=== PATIENT | female | born 1970 | race Hispanic/Latino ===

== ENCOUNTER 2018-08-20 09:25 | Outpatient (CLI) | payer BC ==
[2018-08-20] MEDS ORDERED: ISOVUE-370 76%-LOCM 1 ML ONE (10:04)
--- NOTE | 2018-08-20 11:20 | CT ---
CT OF ABDOMEN AND PELVIS PERFORMED WITH INTRAVENOUS CONTRAST ENHANCEMENT: History: Abdominal pain, diarrhea. Reflux. History of hernia surgery. FINDINGS: The lung bases are clear. The liver, spleen, pancreas, and gallbladder regions all appear unremarkable. Right and left adrenal glands and right and left kidneys are normal in appearance. There is no signif icant periaortic adenopathy. No significant mesenteric lymphadenopathy. CT OF PELVIS PERFORMED WITH INTRAVENOUS CONTRAST ENHANCEMENT: The appendix is normal. No evidence of adenopathy, mass, or free fluid. A 2.4 cm mass is seen along the left side of the fundus of the uterus compatible with a fibroid. Foll icles are seen involving the right adnexa and a bilobed cyst or two cysts adjacent to each other are seen within the left adnexa which have a maximum length of 5.1 cm in diameter, approximately 2.2 cm. IMPRESSION: 1. Uterine fibroid. 2. Left ovarian cyst. POS: [facility]
== END 2018-08-20 09:26 | disposition home or self-care (01) ==
LOC: BICCT 09:25
PROVIDERS: ATTEND Internal Medicine Gastroenterology
DX: R10.10 Upper abdominal pain, unspecified (principal); R19.7 Diarrhea, unspecified; K21.9 Gastro-esophageal reflux disease without esophagitis; N83.202 Unspecified ovarian cyst, left side; D25.9 Leiomyoma of uterus, unspecified
CPT/HCPCS: 74177

== ENCOUNTER 2019-04-15 09:50 | Outpatient (CLI) | payer BC ==
--- NOTE | 2019-04-15 11:44 | ULT ---
RIGHT UPPER QUADRANT ULTRASOUND: HISTORY: Right upper quadrant pain. FINDINGS: Real-time imaging of the right upper quadrant shows a normal-appearing gallbladder. The common duct is 2-3 mm. Visualized liver parenchyma shows no focal abnormalities. The technologist describes a n egative ultrasound Avilez's sign. The right kidney is normal in size but not obstructed. The pancreas is obscured. IMPRESSION: Unremarkable gallbladder ultrasound. POS: [facility]
== END 2019-04-15 09:51 | disposition home or self-care (01) ==
LOC: BICULT 09:50
PROVIDERS: ATTEND Internal Medicine Gastroenterology
DX: K21.9 Gastro-esophageal reflux disease without esophagitis (principal); R10.13 Epigastric pain; R47.02 Dysphasia; K59.00 Constipation, unspecified
CPT/HCPCS: 76705

== ENCOUNTER 2020-07-15 14:47 | Emergency (ER) | payer BC ==
[2020-07-15] MEDS ORDERED: Ondansetron PF 4 MG/2 ML Vial ONE (15:26)
[2020-07-15] MEDS ORDERED: Morphine 4 MG/ML VIAL ONE (15:26)
[2020-07-15 15:38] LABS: #Eosinphils 0.1 thou/uL (0.0-0.7); #Lymphocytes 1.3 thou/uL (1.20-3.40); #Monocytes 0.3 thou/uL (0.11-0.59); #Neutrophils 3.4 thou/uL (1.40-6.50); %Basophils 0.3 % (0.0-1.0); %Eosinophils 1.6 % (0.0-10.0); %Lymphocytes 25.9 % (21.0-51.0); %Neutrophils 66.1 % (42.0-75.0); Hemoglobin 12.1 g/dL (12.0-16.0); Mean Corpuscular HGB CONC 33.5 g/dL (32.0-36.0); Mean Corpuscular Hemoglobin 28.1 pg (27.0-31.0); Mean Corpuscular Volume 84.1 fL (78.0-98.0); Mean Platelet Volume 8.1 fL (7.4-10.4); Platelet Count 207 thou/uL (130-400); RBC Distribution Width 12.1 % (11.5-14.5); Red Blood Cell (RBC) Count 4.28 mill/uL (4.20-5.40); White Blood Cell (WBC) Count 5.2 thou/uL (4.8-10.8)
[2020-07-15 15:43] LABS: BHCG - Serum Negative (NEGATIVE); Pregs Control Background? CLEAR/WHITE (CLR/WHITE); Pregs Control Bar Appear? YES (CONTROL BAR)
[2020-07-15 15:57] LABS: ALT (SGPT) 25 U/L (8-55); AST (SGOT) 25 U/L (5-34); Albumin 4.1 g/dL (3.5-5.0); Alkaline Phosphatase 63 U/L (40-110); Anion Gap 12 mmol/L (10-20); BUN (Urea Nitrogen) 11 mg/dL (9.8-20.1); Bilirubin, Total 0.6 mg/dL (0.2-1.2); Calc. Creatinine Clearance 0 mL/min (70-130); Calcium 8.8 mg/dL (7.8-10.44); Carbon Dioxide 27 mmol/L (22-29); Chloride 105 mmol/L (98-107); Globulin 2.5 g/dL (2.4-3.5); Glucose 104 mg/dL (70-105); Potassium 3.9 mmol/L (3.5-5.1); Protein, Total 6.6 g/dL (6.0-8.3); Sodium 140 mmol/L (136-145)
[2020-07-15 16:08] LABS: Bilirubin Negative (Negative); Blood, Urine Negative (Negative); Clarity Clear (Clear); Glucose, Urine (Dipstick) Normal (Negative); Ketone, Urine Negative (Negative); Leukocyte 25 Leu/uL (Negative); Nitrite Negative (Negative); Protein, Urine (Dipstick) Negative (Neg-Trace); RBC/HPF 0-3 HPF (0-3); Specific Gravity, Urine 1.004 (1.002-1.036); Squamous Epithelial 0-3 HPF (0-3); Urobilinogen Normal mg/dL (Less than 2); WBC/HPF 0-3 HPF (0-3); pH, Urine 7.5 (5.0-9.0)
[2020-07-15 16:10] LABS: Bacteria/HPF 1+ HPF (None Seen)
--- NOTE | 2020-07-15 16:42 | CT ---
CT abdomen and pelvis noncontrast HISTORY: Left flank pain. COMPARISON: 08/20/2018. FINDINGS: Each renal collecting system, ureter, and urinary bladder are decompressed without stone ap parent. Dystrophic calcification near the GE junction is again demonstrated. Hemostasis clips lie immediately adjacent to the medial margin of the spleen and the gastric cardia. Lack of contrast limits evaluation of the soft tissues. Small amount of abdominal fat protrudes into a tiny umbilical hernia. At the expected location of the left ovary, which now lies anterior to the left uterine cornua, where it was posterior on the prior study, a complex cyst measuring up to 3.1 cm greatest diameter contains a fluid fluid level. No evidence of bowel obstruction or inflammation. Appendix unremarkable. No free air. IMPRESSION : No evidence of urinary tract obstruction or calcification. Complex 3.1 cm left ovarian cyst. Fluid fluid level likely represents blood content.
--- NOTE | 2020-07-15 18:27 | ULT ---
PELVIC SONOGRAM WITH TRANSABDOMINAL IMAGING WITH DUPLEX EVALUATION: 07/15/20 HISTORY: Pelvic pain. Left ovarian cyst. COMPARISON: CT abdomen 07/15/20. FINDINGS: Patient declined transvaginal imaging. Urinary bladder is incompletely distended. Uterus has a hetero geneous echotexture and measures up to 9.7 cm. Endometrium is 1.2 cm. Physiologic amount of free fluid within the cul-de-sac. Right ovary measures up to 2.9 cm with good color and spectral Doppler flow. The left ovary measures up to 4.0 cm. A bilobed complex hypoechoic/cystic mass measures up to 3.0 cm x 2.9 cm greatest diameters. Good color and spectral Doppler flow within the left ovary. IMPRESSION: 1. Complex left ovarian cyst, 2.9 cm. No evidence of torsion. 2. Thickened endometrium 1.2 cm. POS: [facility]
== END 2020-07-15 18:59 | disposition home or self-care (01) ==
LOC: ERS 14:47
DX: N83.202 Unspecified ovarian cyst, left side (principal); N39.0 Urinary tract infection, site not specified; K21.9 Gastro-esophageal reflux disease without esophagitis
CPT/HCPCS: 36415; 74176; 76856; 80053; 81003; 81015; 84703; 85025; 87086; 93976; 96374; 96375; J2270; J2405

== ENCOUNTER 2021-08-25 23:13 | Emergency (ER) | payer BC ==
[2021-08-25 23:37] LABS: Bilirubin Negative (Negative); Blood, Urine Negative (Negative); Clarity Clear (Clear); Glucose, Urine (Dipstick) Normal (Negative); Ketone, Urine Negative (Negative); Leukocyte Negative Leu/uL (Negative); Nitrite Negative (Negative); Protein, Urine (Dipstick) Negative (Neg-Trace); Specific Gravity, Urine 1.003 (1.002-1.036); Urobilinogen Normal mg/dL (Less than 2)
[2021-08-26 00:11] LABS: #Eosinphils 0.1 thou/uL (0.0-0.7); #Lymphocytes 1.7 thou/uL (1.20-3.40); #Monocytes 0.3 thou/uL (0.11-0.59); #Neutrophils 1.8 thou/uL (1.40-6.50); %Basophils 0.8 % (0.0-1.0); %Eosinophils 1.8 % (0.0-10.0); %Lymphocytes 42.8 % (21.0-51.0); %Monocytes 7.8 % (0.0-10.0); %Neutrophils 46.8 % (42.0-75.0); Mean Corpuscular HGB CONC 32.9 g/dL (32.0-36.0); Mean Corpuscular Hemoglobin 28.9 pg (27.0-31.0); Mean Corpuscular Volume 87.9 fL (78.0-98.0); Mean Platelet Volume 7.7 fL (7.4-10.4); Platelet Count 229 thou/uL (130-400); RBC Distribution Width 11.2 % (11.5-14.5); Red Blood Cell (RBC) Count 4.51 mill/uL (4.20-5.40); White Blood Cell (WBC) Count 3.9 thou/uL (4.8-10.8)
[2021-08-26 00:19] LABS: BHCG - Serum Negative (NEGATIVE); Pregs Control Background? CLEAR/WHITE (CLR/WHITE); Pregs Control Bar Appear? YES (CONTROL BAR)
[2021-08-26 00:25] LABS: ALT (SGPT) 21 U/L (8-55); AST (SGOT) 20 U/L (5-34); Albumin 4.4 g/dL (3.5-5.0); Alkaline Phosphatase 97 U/L (40-110); Anion Gap 14 mmol/L (10-20); BUN (Urea Nitrogen) 10 mg/dL (9.8-20.1); Bilirubin, Total 0.5 mg/dL (0.2-1.2); Calc. Creatinine Clearance 0 mL/min (70-130); Calcium 9.6 mg/dL (7.8-10.44); Carbon Dioxide 26 mmol/L (22-29); Chloride 104 mmol/L (98-107); Globulin 2.6 g/dL (2.4-3.5); Glucose 98 mg/dL (70-105); Potassium 4.1 mmol/L (3.5-5.1); Sodium 140 mmol/L (136-145)
[2021-08-26] MEDS ORDERED: Ketorolac Tromethamine 30 MG/ML VIAL ONE (01:06)
[2021-08-26] MEDS ORDERED: GoLYTELY 4,000 ml Bottle PO SCH (01:30)
== END 2021-08-26 01:50 | disposition home or self-care (01) ==
LOC: ERS 23:13
DX: K59.00 Constipation, unspecified (principal); K21.9 Gastro-esophageal reflux disease without esophagitis
CPT/HCPCS: 74177; 80053; 81003; 84703; 85025; 96374; J1885

== ENCOUNTER 2022-10-14 01:07 | Inpatient (IN) | payer BC, SELFPAY ==
[2022-10-14] MEDS ORDERED: Ondansetron PF 4 MG/2 ML Vial ONE (01:31)
[2022-10-14] MEDS ORDERED: cefTRIAXone (ROCEPHIN) 1 GM VIAL ONE (01:31)
[2022-10-14] MEDS ORDERED: Ketorolac Tromethamine 30 MG/ML VIAL ONE (01:31)
[2022-10-14 02:16] LABS: ALT (SGPT) 77 U/L (8-55); AST (SGOT) 139 U/L (5-34); Albumin 4.5 g/dL (3.5-5.0); Alkaline Phosphatase 111 U/L (40-110); Anion Gap 16 mmol/L (10-20); BUN (Urea Nitrogen) 13 mg/dL (9.8-20.1); Bilirubin, Total 1.1 mg/dL (0.2-1.2); Calc. Creatinine Clearance 0 mL/min (70-130); Calcium 9.5 mg/dL (7.8-10.44); Carbon Dioxide 24 mmol/L (22-29); Chloride 106 mmol/L (98-107); Estimated GFR 92; Globulin 2.8 g/dL (2.4-3.5); Glucose 109 mg/dL (70-105); Lipase 26 U/L (8-78); Potassium 3.5 mmol/L (3.5-5.1); Protein, Total 7.3 g/dL (6.0-8.3); Sodium 142 mmol/L (136-145)
[2022-10-14] MEDS ORDERED: Acetaminophen 500 MG TAB ONE (02:24)
[2022-10-14 02:57] LABS: Bacteria/HPF 1+ HPF (None Seen); Bilirubin Negative (Negative); Blood, Urine Negative (Negative); Clarity Clear (Clear); Glucose, Urine (Dipstick) Normal (Negative); Ketone, Urine Negative (Negative); Leukocyte 75 Leu/uL (Negative); Nitrite Negative (Negative); Protein, Urine (Dipstick) Negative (Neg-Trace); RBC/HPF 0-3 HPF (0-3); Specific Gravity, Urine 1.008 (1.002-1.036); Squamous Epithelial 0-3 HPF (0-3); Urobilinogen Normal mg/dL (Less than 2); pH, Urine 5.5 (5.0-9.0)
[2022-10-14 03:59] LABS: Mean Corpuscular HGB CONC 34.3 g/dL (32.0-36.0); Mean Corpuscular Hemoglobin 30.3 pg (27.0-31.0); Mean Corpuscular Volume 88.3 fl (78.0-98.0); Mean Platelet Volume 8.2 fL (7.4-10.4); Platelet Count 120 10x3/uL (130-400); RBC Distribution Width 10.9 % (11.5-14.5); Red Blood Cell (RBC) Count 4.29 mill/uL (4.20-5.40); Reflex for Review?? YES; White Blood Cell (WBC) Count 0.3 10x3/uL (4.8-10.8)
[2022-10-14 04:55] LABS: Lactic Acid 1.3 mmol/L (0.5-2.2)
[2022-10-14] MEDS ORDERED: Vancomycin 1 GM/200 ML (FROZEN) BAG ONE (05:24)
[2022-10-14] MEDS ORDERED: Azithromycin 500 MG VIAL ONE (06:40)
[2022-10-14 07:52] LABS: SARS-CoV-2 NAA Rapid Test Not Detected (NotDetected)
[2022-10-14] MEDS ORDERED: Ketorolac Tromethamine 30 MG/ML VIAL IVP PRN (08:47)
[2022-10-14] MEDS ORDERED: Ondansetron ODT 4 MG TAB SL PRN (08:47)
[2022-10-14] MEDS ORDERED: Ondansetron PF 4 MG/2 ML Vial IVP PRN (08:47)
[2022-10-14] MEDS ORDERED: Vancomycin HCl 1 GM in Sodium Chloride 0.9% 250 ML 300 ML IVPB SCH (09:00)
[2022-10-14] MEDS: Sodium Chloride 0.9% 1,000 ML IV SCH ×3 (09:30→19:49)
[2022-10-14 09:58] VITALS: BMI 25.7
[2022-10-14] MEDS: Vancomycin 1 GM in Premix Bag 1 BAG IVPB SCH (17:25)
[2022-10-14] MEDS: Acetaminophen 500 MG TAB PO PRN (17:29)
[2022-10-15] MEDS: cefTRIAXone\\ROCEPHIN 2 GM in Sodium Chloride 0.9% 100 ML IVPB SCH (00:38)
[2022-10-15] MEDS: Sodium Chloride 0.9% 1,000 ML IV SCH ×4 (00:46→17:33)
[2022-10-15] MEDS: Vancomycin 1 GM in Premix Bag 1 BAG IVPB SCH ×2 (06:16→17:33)
[2022-10-15] MEDS: Acetaminophen 500 MG TAB PO PRN (08:25)
[2022-10-15 10:58] LABS: Hemoglobin 12.4 g/dL (12.0-16.0); Mean Corpuscular HGB CONC 35.1 g/dL (32.0-36.0); RBC Distribution Width 11.2 % (11.5-14.5); Red Blood Cell (RBC) Count 3.89 mill/uL (4.20-5.40)
[2022-10-15 11:37] LABS: HBCM Index 0.08 S/CO (0-0.79); HBSAg Index 0.29 S/CO (0-0.99); Hep A IgM AB Non-Reactive (NonReactive); Hep A IgM S/CO 0.15 S/CO (0-0.79); Hep B Surf Ag Non-Reactive S/CO (NonReactive); Hepatitis B Core IgM Abs Non-Reactive (NonReactive)
[2022-10-15 12:03] LABS: ALT (SGPT) 97 U/L (8-55); AST (SGOT) 77 U/L (5-34); Albumin 3.3 g/dL (3.5-5.0); Alkaline Phosphatase 83 U/L (40-110); Anion Gap 9 mmol/L (10-20); BUN (Urea Nitrogen) 9 mg/dL (9.8-20.1); Bilirubin, Total 0.6 mg/dL (0.2-1.2); Calc. Creatinine Clearance 102 mL/min (70-130); Calcium 8.1 mg/dL (7.8-10.44); Carbon Dioxide 23 mmol/L (22-29); Chloride 112 mmol/L (98-107); Estimated GFR 105; Glucose 120 mg/dL (70-105); Potassium 3.5 mmol/L (3.5-5.1); Protein, Total 5.3 g/dL (6.0-8.3); Sodium 140 mmol/L (136-145)
[2022-10-15 12:16] LABS: #Eosinphils 0.1 thou/uL (0.0-0.7); #Lymphocytes 0.8 thou/uL (1.20-3.40); #Monocytes 0.3 thou/uL (0.11-0.59); #Neutrophils 2.8 thou/uL (1.40-6.50); %Basophils 0.5 % (0.0-1.0); %Eosinophils 2.6 % (0.0-10.0); %Lymphocytes 19.1 % (21.0-51.0); %Monocytes 8.5 % (0.0-10.0); %Neutrophils 69.2 % (42.0-75.0); Platelet Morphology Comment PLT clumps seen-ADEQ; RBC Morphology Normal
[2022-10-15] MEDS: Fioricet 325/50/40 mg Tablet PO PRN ×2 (14:38→20:36)
[2022-10-15 17:21] LABS: Vancomycin, Trough 9.1 ug/mL
[2022-10-16] MEDS: cefTRIAXone\\ROCEPHIN 2 GM in Sodium Chloride 0.9% 100 ML IVPB SCH (00:55)
[2022-10-16] MEDS: Vancomycin 1 GM in Premix Bag 1 BAG IVPB SCH ×2 (01:56→10:30)
[2022-10-16 05:29] LABS: #Eosinphils 0.1 thou/uL (0.0-0.7); #Lymphocytes 1.2 thou/uL (1.20-3.40); #Monocytes 0.3 thou/uL (0.11-0.59); #Neutrophils 2.6 thou/uL (1.40-6.50); %Eosinophils 2.4 % (0.0-10.0); %Lymphocytes 28.6 % (21.0-51.0); %Monocytes 7.5 % (0.0-10.0); %Neutrophils 60.4 % (42.0-75.0); Hemoglobin 12.4 g/dL (12.0-16.0); Mean Corpuscular HGB CONC 33.9 g/dL (32.0-36.0); Mean Corpuscular Volume 88.5 fl (78.0-98.0); Platelet Count 126 10x3/uL (130-400); RBC Distribution Width 10.9 % (11.5-14.5); Red Blood Cell (RBC) Count 4.15 mill/uL (4.20-5.40); White Blood Cell (WBC) Count 4.3 10x3/uL (4.8-10.8)
[2022-10-16 05:53] LABS: ALT (SGPT) 97 U/L (8-55); AST (SGOT) 59 U/L (5-34); Albumin 3.8 g/dL (3.5-5.0); Alkaline Phosphatase 99 U/L (40-110); Anion Gap 12 mmol/L (10-20); BUN (Urea Nitrogen) 8 mg/dL (9.8-20.1); Bilirubin, Total 0.3 mg/dL (0.2-1.2); Calc. Creatinine Clearance 97 mL/min (70-130); Calcium 9.1 mg/dL (7.8-10.44); Carbon Dioxide 22 mmol/L (22-29); Chloride 111 mmol/L (98-107); Estimated GFR 103; Globulin 2.5 g/dL (2.4-3.5); Glucose 104 mg/dL (70-105); Potassium 3.7 mmol/L (3.5-5.1); Protein, Total 6.3 g/dL (6.0-8.3); Sodium 141 mmol/L (136-145)
[2022-10-16 05:55] LABS: Troponin I Less than 0.010 ng/mL (< 0.028)
[2022-10-16 12:23] VITALS: BP 147/74; TEMP 98.1
[2022-10-17 12:01] LABS: Hep C IgG Ab Non-Reactive (NonReactive)
[2022-10-17 13:10] LABS: Hep C Index 0.06 S/CO (0-0.79)
== END 2022-10-16 14:30 | disposition home or self-care (01) | DRG 871 ==
LOC: ERS 01:07 → T4-A 08:47
PROVIDERS: ADMIT Student in an Organized Health Care Education/Training Program; ATTEND Internal Medicine
DX: A41.9 Sepsis, unspecified organism (principal); J18.9 Pneumonia, unspecified organism; N39.0 Urinary tract infection, site not specified; E87.20 Acidosis, unspecified; K21.9 Gastro-esophageal reflux disease without esophagitis; F32.A Depression, unspecified; Z20.822 Contact with and (suspected) exposure to COVID-19
CPT/HCPCS: 36415; 71045; 74176; 80053; 80074; 80202; 81003; 81015; 83605; 83690; 84145; 84443; 84484; 85025; 85060; 87040; 87081; 87086; 93005; G0306; J0456; J0696; J1885; J2405; J3370-JW; J3490; J7050

== ENCOUNTER 2025-02-19 08:02 | Emergency (ER) | payer SELFPAY ==
[2025-02-19 08:43] LABS: Bacteria/HPF None Seen HPF (None Seen); CAUTI Indications for Culture Dysuria,urgency,freq; Glucose, Urine (Dipstick) Normal (Negative); Leukocyte Negative Leu/uL (Negative); Protein, Urine (Dipstick) Negative (Neg-Trace); RBC/HPF 0-3 HPF (0-3); Specific Gravity, Urine 1.008 (1.002-1.036); WBC/HPF None Seen HPF (0-3)
[2025-02-19 08:45] LABS: Urine Culture Reflex No No
[2025-02-19 08:56] LABS: #Basophils 0.03 10x3/uL (0.0-0.2); #Eosinophils 0.08 10x3/uL (0.0-0.7); #Monocytes 0.27 10x3/uL (0.11-0.59); #Neutrophils 2.53 10x3/uL (1.40-6.50); %Basophils 0.7 % (0.0-1.0); %Eosinophils 1.9 % (0.0-10.0); %Lymphocytes 31.0 % (21.0-51.0); %Monocytes 6.4 % (0.0-10.0); %Neutrophils 59.8 % (42.0-75.0); Hematocrit 39.8 % (36.0-47.0); Hemoglobin 13.2 g/dL (12.0-16.0); Mean Corpuscular Hemoglobin 28.9 pg (27.0-31.0); Mean Corpuscular Volume 87.3 fL (78.0-98.0); Platelet Count 220 10x3/uL (130-400); Red Blood Cell (RBC) Count 4.56 mill/uL (4.20-5.40); White Blood Cell (WBC) Count 4.23 10x3/uL (4.8-10.8)
[2025-02-19 09:12] LABS: ALT (SGPT) 36 U/L (Less than 34); AST (SGOT) 31 U/L (11-34); Albumin 4.4 g/dL (3.1-4.5); Alkaline Phosphatase 94 U/L (40-110); Anion Gap 13 mmol/L (10-20); BUN (Urea Nitrogen) 19 mg/dL (9.8-20.1); Bilirubin, Total 0.6 mg/dL (0.3-1.2); Calc. Creatinine Clearance 0 mL/min (70-130); Calcium 9.4 mg/dL (7.8-10.44); Carbon Dioxide 26 mmol/L (22-29); Chloride 105 mmol/L (98-107); Globulin 2.5 g/dL (2.4-3.5); Glucose 105 mg/dL (70-105); Potassium 3.9 mmol/L (3.5-5.1); Sodium 140 mmol/L (136-145)
== END 2025-02-19 10:20 | disposition home or self-care (01) ==
LOC: ERS 08:02
DX: R53.83 Other fatigue (principal); R30.0 Dysuria
CPT/HCPCS: 36415; 80053; 81001; 84443; 85025; 87428; 99283

== ENCOUNTER 2025-07-01 08:05 | Outpatient (CLI) | payer OTHER, SELFPAY | END 2025-07-01 08:06 | disposition home or self-care (01) | LOC: SCSULT 08:05 | PROVIDERS: ATTEND Family Medicine | DX: R10.10 Upper abdominal pain, unspecified (principal); R14.0 Abdominal distension (gaseous) | CPT/HCPCS: 76705 ==

== ENCOUNTER 2025-07-14 10:31 | Emergency (ER) | payer SELFPAY ==
[2025-07-14 13:11] LABS: #Basophils 0.04 10x3/uL (0.0-0.2); #Eosinophils 0.05 10x3/uL (0.0-0.7); #Monocytes 0.25 10x3/uL (0.11-0.59); #Neutrophils 2.29 10x3/uL (1.40-6.50); %Basophils 1.2 % (0.0-1.0); %Eosinophils 1.4 % (0.0-10.0); %Lymphocytes 23.5 % (21.0-51.0); %Monocytes 7.2 % (0.0-10.0); %Neutrophils 66.4 % (42.0-75.0); Hematocrit 41.5 % (36.0-47.0); Hemoglobin 13.7 g/dL (12.0-16.0); Mean Corpuscular Hemoglobin 28.0 pg (27.0-31.0); Mean Corpuscular Volume 84.9 fL (78.0-98.0); Platelet Count 234 10x3/uL (130-400); Red Blood Cell (RBC) Count 4.89 mill/uL (4.20-5.40); White Blood Cell (WBC) Count 3.45 10x3/uL (4.8-10.8)
[2025-07-14 13:30] LABS: ALT (SGPT) 50 U/L (Less than 34); AST (SGOT) 45 U/L (11-34); Albumin 4.5 g/dL (3.1-4.5); Alkaline Phosphatase 113 U/L (40-110); Anion Gap 13 mmol/L (10-20); BUN (Urea Nitrogen) 13 mg/dL (9.8-20.1); Bilirubin, Total 0.7 mg/dL (0.3-1.2); Calc. Creatinine Clearance 0 mL/min (70-130); Calcium 9.5 mg/dL (7.8-10.44); Carbon Dioxide 28 mmol/L (22-29); Chloride 107 mmol/L (98-107); Globulin 2.8 g/dL (2.4-3.5); Glucose 96 mg/dL (70-105); Potassium 4.0 mmol/L (3.5-5.1); Sodium 144 mmol/L (136-145)
[2025-07-14] MEDS ORDERED: Aspirin Chewable 81 MG TAB ONE (14:19)
[2025-07-14] MEDS ORDERED: Ondansetron PF 4 MG/2 ML Vial ONE (14:19)
[2025-07-14] MEDS ORDERED: Acetaminophen 500 MG TAB ONE (14:33)
[2025-07-14 15:31] LABS: Magnesium 2.1 mg/dL (1.6-2.6)
== END 2025-07-14 16:43 | disposition home or self-care (01) ==
LOC: ERS 10:31
DX: R07.89 Other chest pain (principal); R00.2 Palpitations
CPT/HCPCS: 70450; 71045; 80053; 83735; 84443; 84484; 85025; 93005; J2270; J2405